=== PATIENT | male | born 1955 | race Caucasian/White ===

== ENCOUNTER 2024-11-02 04:00 | Outpatient (CLI) | payer MEDICARE, OTHER, SELFPAY ==
--- OUTSIDE RECORDS SUMMARY | 2024-11-04 00:33 | XMS_ITS | Clinical Summary ---
Author Organization [employer] Address [address] [place] [id number] Care Team Providers Care Histotechnician Name Role Phone Elver Gregg MD Primary Care Provider Allergies Active Allergy Reactions Criticality Noted Date Comments Adhesive Tape-Silicones Rash 07/23/2017 Cefazolin Rash Medium 07/30/2017 Latex Shortness Of Breath 07/21/2017 States when around rubber items has a hard time breathing Medications multivitamin-min erals therapeutic tabletIndication s:Open knee wound, right, sequela Take 1 tablet by mouth once daily. 0 08/10/19 18 Active ascorbic acid, vitamin C, (VITAMIN C) 500 mg tabletIndication s:Open knee wound, right, sequela Take 1 tablet by mouth 2 times daily with meals. 0 08/09/19 18 Active zinc sulfate 220 (50) mg capsuleIndicatio ns:Open knee wound, right, sequela Take 1 capsule by mouth once daily. 0 08/09/19 18 Active blood-glucose meterIndications :Type 2 diabetes mellitus without complication, without long-term current use of insulin (HC) Dispense meter, test strips, lancets covered by pt ins. E11.9 NIDDM type II - Test 3 times/day, Reason: New diabetes 1 Device 01/21/20 18 Active arginine-Vit C-Vit E powder (ARGINAID) 4.5 gram-156 mg/9.2 gram pwpk Mix 1 Packet in liquid then take by mouth. Three times a week 0 07/08/19 20 Active lancets (ACCU-CHEK SOFTCLIX LANCETS)Indicati ons:Type 2 diabetes mellitus without complication, without long-term current use of insulin (HC) Dispense item covered by pt ins. E11.9 NIDDM type II - Test 1 time/day (dispense the lancet that goes with meter) 100 Each 3 07/08/19 20 Active Cholecalciferol, Vitamin D3, 3,000 unit tabIndications:V itamin D deficiency Take 2 tablets by mouth once daily. 0 06/14/19 21 Active ibuprofen (ADVIL; MOTRIN) 200 mg tablet Take 200-600 mg by mouth 4 times daily if needed. Active acetaminophen (TYLENOL EXTRA STRGTH) 500 mg tablet Take 500 mg by mouth every 6 hours if needed. Max acetaminophen dose: 4000mg in 24 hrs. Active blood sugar diagnostic (Blood Glucose Test) stripIndications :Type 2 diabetes mellitus without complication, without long-term current use of insulin (HC) As directed. Test 1 times per day. Prodigy test strips. 100 Each 2 01/15/20 21 Active blood-glucose meterIndications :Type 2 diabetes mellitus without complication, without long-term current use of insulin (HC) Dispense meter (accuchek) E11.9 NIDDM type II - Test 1 time/day 1 Each 04/22/20 22 Active doxycycline 100 mg tabletIndication s:Recurrent cellulitis of lower extremity Take 1 Tablet (100 mg) by mouth two times daily. 14 Tablet 08/20/19 24 Active lisinopriL (PRINIVIL; ZESTRIL) 10 mg tabletIndication s:Primary hypertension Take 1 Tablet (10 mg) by mouth once daily. 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 04/25/20 21 Hypoxia 01/05/2021 Type 2 diabetes mellitus wit hout complication, without long-term current use of insulin 01/27/2018 History of skin graft 01/19/2018 ACP (advance care planning) 09/03/2017 Overview (09/03/2017): Patient has identified Health Care Agent(s): No Add Health Care Agents: No Patient has Advance Care Plan Documents (Health Care Directive, POLST): No Patient has identified Specific Treatment Preferences: Yes How have preferences been verified: verbal Specific Treatment Preferences: a.) Code Status: CPR/Attempt Resuscitation History of toxic shock syndrome 07/18/2017 Vitamin D deficiency 01/24/2013 Overview (11/27/2014): Jan 2013: Vitamin D 13. November 2014: vitamin D 17. 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 Recommended statin and discussed Stroke and heart attack risk reduction with statin, Patient declined statin. HTN (hypertension) 07/21/2009 Cervical spinal stenosis 06/25/2009 Degeneration of cervical intervertebral disc 04/2010 Brachial neuritis or radiculitis NOS 06/25/2009 Resolved Problems Problem Noted Date Diagnosed Date Resolved Date Sepsis due to cellulitis 01/05/2021 Sepsis 01/15/2018 10/07/2018 Sore throat 09/04/2017 09/06/2017 Thrush 09/03/2017 06/14/2020 Cellulitis of lower extremity 09/02/2017 10/07/2018 Sepsis 09/02/2017 01/27/2018 Abscess 07/30/2017 01/28/2018 VIKRAM (acute kidney injury) 07/18/2017 Severe sepsis secondary to cellulitis 07/18/2017 04/25/2021 Immunizations Immunization Administration Dates Next Due DT (Age < 7 years) 08/16/1989 Family History Medical History Relation Name Comments Cancer-prostate Father Diabetes Father Heart Disease Father Stroke Mother Relation Name Status Comments Father Mother Social History Tobacco Use Types Packs/Day Years Used Date Smoking Tobacco: Never Smokeless Tobacco: Never Tobacco Cessation:Counseling Given: Yes Alcohol Use Standard Drinks/Week Comments Yes 1 (1 standard drink = 0.6 oz pur e alcohol) minimal/ beer once a month PHQ-2 Answer Date Recorded PHQ-2 TOTAL SCORE 0 08/20/2023 Social Connections Answer Date Recorded Do you often feel lonely or isolated from those around you? 0 09/04/2023 Financial Resource Strain Answer Date R ecorded Difficulty of Paying Living Expenses 3 09/04/2023 Difficulty of Paying Living Expenses Not on file 09/04/2023 Food Insecurity Answer Date Recorded Do you worry your food will run out before you are able to buy more? 1 09/04/2023 Transportation Needs Answer Date Record ed Does lack of transportation keep you from medica l appointments? 1 09/04/2023 Does lack of transportation keep you from work, meetings or getting things that you need? 1 09/04/2023 Housing Stability Answer Date Recorded What is your housing situation today? 1 09/04/2023 Utilities Answer Date Recorded Do you have trouble paying f or utilities (for example, heat, electricity, water, phone)? 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 Gender Identity Not on file Sexual Orientation Not on file Obstetrics History Last Filed Vital Signs Vital Sign Reading Time Taken Comments Blood Pressure 165/100 01/03/2024 11:07 AM CDT Pulse 65 01/03/2024 11:07 AM CDT Temperature 37.1 C (98.7 F) 01/03/2024 11:07 AM CDT Respiratory Rate 16 01/08/2021 10:2 8 AM CDT Oxygen Saturation 97% 01/03/2024 11: 07 AM CDT Inhaled Oxygen Concentration - - Weight 131.7 kg (290 lb 4.8 oz) 024 7:55 AM CDT with shoes Height 167.6 cm (5' 6) 08/20/2023 8:10 AM CDT Body Mass Index 46.86 08/20/2023 8:10 AM CDT Plan of Treatment Health Maintenance Due Date Last Done Comments Tdap 11/06/1966 Hepatitis C screening for age 18-79 11/06/1973 Pneumococcal series for age 50+ (1 of 2 - PCV) 11/06/1974 Tetanus booster 1975 Zoster (shingles) series for age 50+ (1 of 2) 11/06/2005 RSV vaccine for adults or (1 - Risk 60-74 years 1-dose series) 2015 COVID-19 vaccine series ( - season) 2024 BMI (ht and wt on same day) for age 18+ 08/19/2024 08/20/2023, 04/04/2022, 07/08/2019, Additional history exists Depression screening for age 12+ 08/19/2024 08/20/2023, 08/20/2023, 04/05/2022, Additional history exists Medicare Wellness for age 65+ 08/20/2024 08/20/2023, 04/04/2022 Influenza Vaccine (Season Ended) 2025 Fecal testing sDNA-FIT (Cologuard) for age 45-75 08/30/2025 08/30/2022, 10/31/2018, 12/30/2017, Additional history exists Lipids for age 45-75 08/19/2028 08/20/2023, 04/04/2022, 06/15/2020, Additional history exists Hepatitis B series for 19+ Aged Out N o longer eligible based on patient's age to complete this topic Medical Devices Implanted Type Area Blocker Polishing Device Identifier Shelf Expiration Date Model / Serial / Lot Integra Bilayer Matrix Wound Dressing Implanted:Qty: 1 on 08/06/2017 by Dennis Michaud MD at [facility] Right: Knee Integra [employer] Seth 10/11/2017 [id number] / / [id number] Procedures Procedure Name Priority Date/Time Associated Diagnosis Comments LIPID PANEL W REFLEX MEASURED LDL Routine 08/20/2023 7:56 AM CDT Hyperlipidemia, unspecified hyperlipidemia type SDNA-FIT EXTERNAL (COLOGUARD) Routine 08/30/2022 6:48 AM CDT Screening for colon cancer from Last 3 Months or Most Recently Relevant to Health Maintenance Results * (ABNORMAL) LIPID PANEL W REFLEX MEASURED LDL (08/20/2023 7:56 AM CDT) CHOLESTEROL,TOTAL 233(H) 100 - 199 mg/dL 08/20/2023 2:14 PM CDT [facility] Comment: Cholesterol, Total Reference Ranges Desirable <200 mg/dL Borderline 200-239 mg/dL High >=240 mg/dL TRIGLYCERIDES 185(H) <150 mg/dL 08/20/2023 2:14 PM CDT [facility] HDL CHOLESTEROL 40(L) >40 mg/dL 2:14 PM CDT [facility] NON-HDL CHOLESTEROL 193(H) <145 mg/dl 08/20/2023 2:14 PM CDT [facility] CHOL/HDL RATIO 5.83(H) <4.50 08/20/2023 2:14 PM CDT [facility] LDL CHOLESTEROL 156(H) <=130 mg/dL 08/20/2023 2:14 PM CDT [facility] VLDL CHOLESTEROL 37(H) <=30 mg/dL 08/20/2023 2:14 PM CDT [facility] PROVIDER ORDERED STATUS RANDOM 08/20/2023 2:14 PM CDT [facility] Blood BLOOD SPECIMEN / Unknown Venipuncture / Unknown 08/20/2023 7:56 AM CDT 08/20/2023 8:01 AM CDT Elver Gregg MD CHEMISTRY Final R esult [facility] [address] [place] [address], * SDNA-FIT EXTERNAL (COLOGUARD) (08/30/2022 6:48 AM CDT) NONINV COLON CA DNA+OCC BLD SCRN STL-IMP Negative Negative 09/08/2022 3:19 AM CDT [facility] (CLIA #:[id number]) Comment: NEGATIVE TEST RESULT. A negative Cologuard result indicates a low likelihood that a colorectal cancer (CRC) or advanced adenoma (adenomatous polyps with more advanced pre-malignant features) is present. The chance that a person with a negative Cologuard test has a colorectal cancer is less than 1 in 1500 (negative predictive value >99.9%) or has an advanced adenoma is less than 5.3% (negative predictive value 94.7%). These data are based on a prospective cross-sectional study of 10,000 individuals at average risk for colorectal cancer who were screened with both Cologuard and colonoscopy. (Annabel Perez al, N Engl J Med 2014;370(14):9138-5342) The normal value (reference range) for this assay is negative. COLOGUARD RE-SCREENING RECOMMENDATION: Periodic colorectal cancer screening is an important part of preventive healthcare for asymptomatic individuals at average risk for colorectal cancer. Following a negative Cologuard result, the [place] [employer] Society and U.S. Multi-Society Task Force screening guidelines recommend a Cologuard re-screening interval of 3 years. References: [place] [employer] Society Guideline for Colorectal Cancer Screening: https://www.cancer.org/cancer/nwvvp-unqwpb-rxcwzy/ahfjpbisw-asqhcaweb-iedzsgd/ac s-rec ommendations.html.; Bernard DK, Елена CRAIN, Charles LealK, Colorectal Cancer Screening: Recommendations for Physicians and Patients from the U.S. Multi-Society Task Force on Colorectal Cancer Screening , Am J Gastroenterology 2017; 112:6682-6606. TEST DESCRIPTION: Composite algorithmic analysis of stool DNA-biomarkers with hemoglobin immunoassay. Quantitative values of individual biomarkers are not reportable and are not associated with individual biomarker result reference ranges. Cologuard is intended for colorectal cancer screening of adults of either sex, 45 years or older, who are at average-risk for colorectal cancer (CRC). Cologuard has been approved for use by the U.S. FDA. The performance of Cologuard was established in a cross sectional study of average-risk adults aged 50-84. Cologuard performance in patients ages 45 to 49 years was estimated by sub-group analysis of near-age groups. Colonoscopies performed for a positive result may find as the most clinically significant lesion: colorectal cancer [4.0%], advanced adenoma (including sessile serrated polyps greater than or equal to 1cm diameter) [20%] or non- advanced adenoma [31%]; or no colorectal neoplasia [45%]. These estimates are derived from a prospective cross-sectional screening study of 10,000 individuals at average risk for colorectal cancer who were screened with both Cologuard and colonoscopy. (Annabel Perez al, N Engl J Med 2014;370(14):3728-5214.) Cologuard may produce a false negative or false positive result (no colorectal cancer or precancerous polyp present at colonoscopy follow up). A negative Cologuard test result does not guarantee the absence of CRC or advanced adenoma (pre-cancer). The current Cologuard screening interval is every 3 years. ([place] [employer] Society and U.S. Multi-Society Task Force). Cologuard performance data in a 10,000 patient pivotal study using colonoscopy as the reference method can be accessed at the following location: www.[employer]/results. Additional description of the Cologuard test process, warnings and precautions can be found at www.[employer].com. Stool specimen (specimen) (Rectum) 08/30/2022 6:48 AM CDT 08/31/2022 2:30 PM CDT Elver Gregg MD URINE Final R esult [facility] (CLIA #:[id number]) [place] [address], from Last 3 Months or Most Recently Relevant to Health Maintenance Insurance MEDICARE PPS MEDICA PRIME SOLUTION HB MEDICA PRIME SOLUTIONS MR PB ONLY MEDICA PRIME SOLUTION HB MEDICARE PART A HB ONLY MEDICARE PART B HB ONLY WORKERS COMP [facility] Advance Directives * Full Code (Latest Code Status on File) Date Activated Date Inactivated Comments 01/04/2021 8:57 PM 01/08/2021 3:10 PM Question Answer Comments Code Status Discussion: Discussed * Full Code Date Activated Date Inactivated Comments 01/15/2018 9:20 PM 01/20/2018 3:30 PM * Full Code Date Activated Date Inactivated Comments 09/02/2017 10:55 PM 09/04/2017 8:05 PM * Full Code Date Activated Date Inactivated Comments 07/18/2017 9:06 AM 08/08/2017 1:12 PM Care Teams Histotechnician Relationship Specialty [place] [address] [place] [address] PCP - General Family Practice 06/10/19
--- OUTSIDE RECORDS SUMMARY | 2024-11-04 00:33 | XMS_ITS ---
Author Organization [facility] [place] Care Team Providers Care Radio Board Operator Announcer Name Role Phone Shayla Morris Unavailable Unavailable Robert Manning Unavailable Unavailable Allergies and adverse reactions Code CodeSystem Substance Reaction Severity StartDate Concern Status Rubber items Lung finding (c ode- 936571875, SNOMED CT) Moderate 08/08/2017 active Latex Unknown Unknown active 2180 RXNORM Cefazolin Unknown Unknown active Adhesive Tape Unknown Unknown active Care Team Name Role Address Phone Organization Dates Robert Manning [facility] [address] [place] [address], [address], [place], [facility], [facility] (Office): [facility] 08/08/2017 - 08/25/2017 Shayla Morris [facility] [address], [place], [facility], [facility] (Office): : [facility] 08/08/2017 - 08/25/2017 Immunizations Immunization Status Vaccine Details Vaccine Code CodeSystem Date Notes TB 2 Step Mantoux Skin Test completed tuberculin skin test; unspecified formulation lotNumber: [id number] expiry: 12/11/2019 Mfg: sanofi pasteur Given 0.1 ml Right Forearm intradermally Step 2 of Multi-step with next step required 98 CVX created date: 08/23/2017 consent date: 08/23/2017 administer ed date: 08/23/2017 Educated by Andreina Orozco RN on 08/08/2017 Read result on 08-25-17 at 0830. TB 2 Step Mantoux Skin Test completed tuberculin skin test; unspecified formulation lotNumber: [id number] expiry: 12/21/2019 Mfg: sanofi pasteur Given 0.1 ml Right Forearm intradermally Step 1 of Multi-step with next step required 98 CVX created date: 08/09/2017 consent date: 08/09/2017 administer ed date: 08/09/2017 Educated by Andreina Orozco RN on 08/08/2017 PPSV23, Pneumovax 23 cancelled created date: 08/16/2017 consent date: 08/16/2017 Mental Status Section Date Assessment Total Score Description 08/25/2017 BIMS 15 cognitively int act CAM 0 No delirium ind icated PHQ-9 02 minimal depress ion 08/21/2017 BIMS 15 cognitively int act CAM 0 No delirium ind icated PHQ-9 02 minimal depress ion Problems Problem # Description Date of onset Resolved Date Code CodeSystem Concern Status 1 CONSTIPATION, UNSPECIFIED 08/08/[address] active 2 DIFFICULTY IN WALKING, NOT ELSEWHERE CLASSIFIED 08/08/[address] active 3 ENCOUNTER FOR CHANGE OR REMOVAL OF SURGICAL WOUND DRESSING 08/08/[address] active 4 ENCOUNTER FOR SURGICAL AFTERCARE FOLLOWING SURGERY ON THE SKIN AND SUBCUTANEOUS TISSUE 08/08/[address] active 5 ESSENTIAL (PRIMARY) HYPERTENSION 08/08/[address] active 6 HYPERLIPIDEMIA, UNSPECIFIED 08/08/[address] active 7 OTHER CHRONIC PAIN 08/08/[address] active 8 OTHER REDUCED MOBILITY 08/08/[address] active 9 OVERWEIGHT 08/08/[address] active 10 SPINAL STENOSIS, CERVICAL REGION 08/08/[address] active Reason for Referral No Reasons for Referral Entered Social History Social History Observation Description Start Date End Date Code Code System Current Smoking Status Tobacco smoking consumption unknown 697569753 SNOMED CT Sex Assigned At Male 1955 70554-1 [facility] Gender Identity Vital Signs Code Code System Vitals Name Values and Units Timing Information 8462-4 [facility] Blood Pressure-Diastolic Value=88 Un its=mmHg 08/25/2017 8480-6 [facility] Blood Pressure-Systolic Lyknw=397 Un its=mmHg 08/25/2017 10274-5 [facility] Pain Level Value=0.0 08/25/2017 8310-5 [facility] Body Temperature Value=98.0 Units= F 08/25/2017 8867-4 [facility] Heart rate Value=82.0 Units=/min 9279-1 [facility] Respiratory Rate Value=18.0 Units=/m in 08/25/2017 74816-8 [facility] O2 % BldC Oximetry Value=98.0 Units= % 08/25/2017 55219-2 [facility] Weight Ygdrm=254.6 Units=Lbs 10/2017 8302-2 [facility] Height Value=66.0 Units=Inches 08/13/2017
--- OUTSIDE RECORDS SUMMARY | 2024-11-04 00:33 | XMS_ITS | Clinical Summary ---
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 Gender Identity Not on file Sexual Orientation Not on file Last Filed Vital Signs Vital Sign Reading Time Taken Comments Blood Pressure 147/90 08/29/2017 8:40 AM CDT Pulse 73 08/29/2017 8:40 AM CDT Temperature 36.6 C (97.9 F) 08/29/2017 8:40 AM CDT Respiratory Rate 18 08/29/2017 8:40 AM CDT Oxygen Saturation - - Inhaled Oxygen Concentration - - Weight 126.8 kg (279 lb 9.6 oz) 08/29/2017 8:40 AM CDT Height 167.6 cm (5' 6) 08/29/2017 8:40 AM CDT Body Mass Index 45.13 08/29/2017 8:40 AM CDT Plan of Treatment Not on file Insurance [employer] SOLUTION MEDICARE Care Teams Window Systems Administrator Relationship Specialty Start Date End Date No Ref-Primary, Physician PCP - General 08/29/17
== END 2024-11-02 04:01 | disposition home or self-care (01) ==
LOC: AMB 11-03 12:29
PROVIDERS: Visit Provider Family Medicine
DX: I46.9 Cardiac arrest, cause unspecified (principal)
CPT/HCPCS: A0429